=== PATIENT | male | born 1990 | race Two or more races ===

== ENCOUNTER 2016-12-10 00:13 | Emergency (ER) | payer OTHER ==
[2016-12-10 00:28] VITALS: BP 120/87
== END 2016-12-10 02:00 | disposition home or self-care (01) ==
LOC: ED 00:13
DX: N48.89 Other specified disorders of penis (principal)

== ENCOUNTER → 2016-12-14 | Outpatient (CLI) | payer OTHER | END | disposition home or self-care (01) | LOC: LB 16:33 | DX: Z11.3 Encounter for screening for infections with a predominantly sexual mode of transmission (principal) | CPT/HCPCS: 86694; 87491; 87591 ==